=== PATIENT | female | born 1960 | race Caucasian/White ===

== ENCOUNTER → 2016-08-27 | Outpatient (CLI) | payer OTHER ==
--- NOTE | 2016-08-28 10:48 | MAM ---
History: Well woman exam. Date of exam: 08/27/2016 Services provided: Bilateral full field digital screening mammography. CAD, the images were reviewed with R2 computer aided detection. FINDINGS: Glandular tissue is scattered glandular pattern. A prior study is not currently available for comparison. 9 mm nodule left breast 10:00 approximately 7 to 8 cm from the nipple, sonographically approximately 4 cm. No clustered microcalcifications, architectural distortion or dominant mass on the right. IMPRESSION: Incomplete study Recommendation: Directed left breast sonography unless a prior mammogram becomes available. BIRAD CATEGORY: 0 INCOMPLETE Electronically signed by: Magaly Yang MD 08/28/2016 10:47 AM CDT
== END | disposition home or self-care (01) ==
LOC: MAMMO 16:11
PROVIDERS: ATTEND Family Medicine
DX: Z12.31 Encounter for screening mammogram for malignant neoplasm of breast (principal)

== ENCOUNTER → 2017-09-10 | Outpatient (CLI) | payer SELFPAY | LOC: LAB.O 13:07 | PROVIDERS: ATTEND Nurse Practitioner Family | DX: R19.7 Diarrhea, unspecified (principal) ==